=== PATIENT | female | born 1995 | race Caucasian/White ===

== ENCOUNTER → 2016-04-21 | Outpatient (CLI) | payer OTHER | LOC: RAD 12:31 | PROVIDERS: ATTEND Student in an Organized Health Care Education/Training Program | DX: N97.0 Female infertility associated with anovulation (principal) | CPT/HCPCS: 58340; 74740 ==

== ENCOUNTER → 2016-11-05 | Outpatient (CLI) | payer OTHER | LOC: OD 10:31 | PROVIDERS: ATTEND Student in an Organized Health Care Education/Training Program | DX: N97.9 Female infertility, unspecified (principal) | CPT/HCPCS: 36415; 84144 ==